=== PATIENT | female | born 1990 | race Hispanic/Latino ===

== ENCOUNTER 2023-12-19 12:16 | Emergency (ER) | payer BC, SELFPAY ==
[2023-12-19 12:37] VITALS: BP 93/65; PULSE 75; RESP 20; TEMP 36.9; O2SAT 99
--- NOTE | 2023-12-19 13:03 | ED.ABDPAIN ---
HPI - Abdominal Pain General Chief Complaint: Abdominal Pain Stated Complaint: Vomiting/Abdominal Pain Time Seen by Provider: 12/19/23 12:40 Source: patient Mode of arrival: ambulatory Limitations: no limitations History of Present Illness HPI narrative: Barbara is a 33-year-old female patient presenting to the clinic today with complaints of right upper quadrant abdominal pain, mid abdominal pain, nausea, and diarrhea for the past 15 days. Last menstrual period she thinks was on December 08. Last bowel movement was this morning and normal for the patient. She denies any fever, chills, or body aches. Review of Systems Review of Systems: Pertinent positives per HPI. Patient denies any fever, chills, rash, headache, visual changes, dizziness, cough, runny nose, sore throat, shortness of breath, chest pain, palpitations, nausea, vomiting, diarrhea, constipation, abdominal pain, or any urinary issues. PMFSH Comments At the time of my signature, I reviewed and agree with the nursing past medical, surgical, social, and family history. There is no relevant family history pertinent to the patient complaint. Exam Narrative: General: Well-developed, well nourished, in no apparent distress. Head: Normocephalic, atraumatic. Cardio: Regular rate and rhythm, s1 and s2 normal, no murmur appreciated. Resp: Clear to auscultation bilaterally, no rhonchi, rales, wheezing or rubs. Abdomen: Soft, pliable, bowel sounds present in all quadrants, right upper quadrant and mid abdominal tender to palpation, no organomegly, no CVAT tenderness. : Deferred Course Course Emergency Course: Portions of this record may have been created with voice recognition software. Level of Care: Express Care Visit Vital Signs Vital signs: Vital Signs Temperature 36.9 C 12/19/23 12:37 Pulse Rate 75 12/19/23 12:37 Respiratory Rate 20 12/19/23 12:37 Blood Pressure 93/65 L 12/19/23 12:37 Pulse Oximetry 99 12/19/23 12:37 Oxygen Delivery Room Air 12/19/23 12:37 Temperature 36.9 C 12/19/23 12:37 Pulse Rate 75 12/19/23 12:37 Respiratory Rate 20 12/19/23 12:37 Blood Pressure 93/65 L 12/19/23 12:37 Pulse Oximetry 99 12/19/23 12:37 Oxygen Delivery Room Air 12/19/23 12:37 Vital signs reviewed MDM - Abdominal Pain MDM Narrative Medical decision making narrative: At the time of visit patient is resting comfortably on the exam table. Patient appears to be nontoxic. Labs: UA positive for trace leukocytes and 1+ blood. UA preg test positive Plan: test was positive. Recommend transfer to the ER for further evaluation for abdominal pain and . Patient voiced understanding. Patient would like to be transfer to [facility]. Contacted Dr. Ohara at [facility] and report was given for continuity of care. Differential Diagnosis Differential diagnosis: Likely abdominal pain, acute appendicitis, calculus of kidney, constipation, diverticulitis, endometriosis, gastroenteritis, pancreatitis, small bowel obstruction and other ( Ectopic , GERD, peptic ulcer) Discharge Plan Discharge Clinical Impression: Abdominal pain, Patient Disposition: Acute Care Hospital Condition: Stable Follow-up/Referrals: PHYSICIAN,GYROSCOPE REPAIRER [Primary Care Provider] - Time of Disposition: 13:30 Quality NIHSS Nursing Documentation ED NIHSS nursing documentation: reviewed/agree
[2023-12-19 13:07] LABS: EDUABILI Negative; EDUABLOOD 1+; EDUAGLUCOSE Negative; EDUAKETONE Negative; EDUALEUKO Trace; EDUANITRATE Negative; EDUAPH 6.5; EDUAPROTEIN Negative; EDUASPGRAVITY 1.015; EDUAUROBILI 0.2
[2023-12-21 12:22] LABS: EDUAAPPEAR Clear; EDUACOLOR1 Yellow
== END 2023-12-19 13:37 | disposition short-term general hospital (02) ==
PROVIDERS: Emergency Provider Nurse Practitioner Family
DX: O99.891 Other specified diseases and conditions complicating pregnancy (principal); Z3A.00 Weeks of gestation of pregnancy not specified; R10.11 Right upper quadrant pain; R10.9 Unspecified abdominal pain
CPT/HCPCS: 81003; 81025; 99202; G0463

== ENCOUNTER 2023-12-19 16:51 | Emergency (ER) | payer BC, SELFPAY ==
--- NOTE | ~2023-12-19 | US_ITS ---
EXAMINATION: US OB transvaginal INDICATION: + test, lower abd pain TECHNIQUE: Sonography of the pelvis was performed by transabdominal and transvaginal techniques. COMPARISON: None. RESULT: Uterus: 10.9 x 5.8 x 7.4 cm. Anteverted. Possible arcuate morphology. Homogenous myometrium. Intrauterine gestational sac: Not seen. Mean Sac Diameter: 2.5 cm, corresponding gestational age 7 week 4 days. Yolk sac: 0.5 cm . Embryo: Single present. [place] rump length: 1.1 cm, corresponding gestational age 7 weeks, 1 days. G estational heart rate: present 141 bpm. Subgestational hematoma: Present measuring 3.1 x 1.0 x 1.6 cm . Right ovary: 3.7 x 2.0 x 2.1 cm. Vascular flow is present. No adnexal mass. Left ovary: 3.1 x 1.9 x 1.9 cm. Vascular flow is present. No adnexal mass. Pelvis free fluid: None. IMPRESSION: Single, live intrauterine gestation. Estimated Gestational Age: 7 weeks, 1 days by crown rump length. ERIKA by ultrasound 08/05/2024. Moderate volume subchorionic hemorrhage. Reviewed, dictated and finalized at location K. IMPRESSION: Single, live intrauterine gestation. Estimated Gestational Age: 7 weeks, 1 days by crown rump length. ERIKA by ultras ound 08/05/2024. Moderate volume subchorionic hemorrhage.
[2023-12-19 16:55] VITALS: BP 117/67; PULSE 90; RESP 20; TEMP 36.7; O2SAT 100
--- NOTE | 2023-12-19 16:57 | ED.ABDPAIN ---
HPI - Abdominal Pain General Chief Complaint: Abdominal Pain <PEGGY Farley Last Filed: 12/20/23 12:12> Stated Complaint: abd pain <PEGGY Farley Last Filed: 12/20/23 12:12> Time Seen by Provider: 12/19/23 16:57 <PEGGY Farley Last Filed: 12/20/23 12:12> Focused HPI: This is a 33-year-old female that presents to emergency department for mid abdominal pain. Ongoing over the last week. Reports some nausea and diarrhea. Reports she had a positive test at the Urgent Care, was sent to the ER for further evaluation. Reports she had a menstrual cycle about 10 days ago, but it was not normal. Denies fever, vomiting, dysuria, hematuria. GENERAL: Well-appearing, well-nourished, and in no acute distress. HEAD: Normocephalic, atraumatic. CHEST: Clear to auscultation. ?No respiratory distress. HEART: Regular rate and rhythm.? NEURO: ?Alert and oriented x3. Patient screened in triage and initial orders placed.? ?Additional care and disposition to be based upon?diagnostic testing and treatment. <PEGGY Farley Last Filed: 12/20/23 12:12> Source: patient <PEGGY Gaytan Last Filed: 12/19/23 23:25> Mode of arrival: ambulatory <PEGGY Gaytan Last Filed: 12/19/23 23:25> Limitations: no limitations <PEGGY Gaytan Last Filed: 12/19/23 23:25> History of Present Illness HPI narrative: Agree with above HPI. Patient is primarily Montenegrin-speaking. 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 Reports persistent nausea for past 15 days. Denies vomiting. Has been able to eat and drink. <PEGGY Gaytan Last Filed: 12/19/23 23:25> Related Data Allergies/Adverse Reactions: Allergies Allergy/AdvReac Type Severity Reaction Status Date / Time No Known Allergies Allergy Verified 12/19/23 16:54 <Akila Reyes PA-C - Last Filed: 12/20/23 12:12> Review of Systems Review of Systems: CONSTITUTIONAL: Denies fever, chills, or sweats GASTROINTESTINAL: see HPI. GENITOURINARY: Denies dysuria or hematuria. <Carmenza Cole PA-C - Last Filed: 12/19/23 23:25> All systems reviewed & are unremarkable except as noted in HPI and below <Carmenza Cole PA-C - Last Filed: 12/19/23 23:25> PMFSH Past Medical History Medical History: Medical History (Updated 12/20/23 @ 12:11 by Akila Reyes PA-C) No active medical problems <Akila Reyes PA-C - Last Filed: 12/20/23 12:12> Social History Social History: Social History (Updated 12/20/23 @ 12:11 by Akila Reyes PA-C) Substance use: never <Akila Reyes PA-C - Last Filed: 12/20/23 12:12> Exam Narrative: GENERAL: Well appearing, well-nourished, non-toxic, in no acute distress. HEAD: Normocephalic, atraumatic. RESPIRATORY: Airway patent, respirations nonlabored. Clear to auscultation bilaterally, no rales, rhonchi, wheezing. CARDIOVASCULAR: Regular rate and rhythm ABDOMINAL: Soft, mild tenderness in epigastric region, nondistended. Normoactive BS. MUSCULOSKELETAL: Moves all extremities. No gross deformities. SKIN: Warm, dry, normal color. NEURO: A&O X3. Speech clear. PSYCHIATRIC: Appropriate mood and affect. Normal interaction. <Carmenza Coel PA-C - Last Filed: 12/19/23 23:25> Course Vital Signs Vital signs: Vital Signs Temperature 98.1 F 12/19/23 16:55 Pulse Rate 90 12/19/23 16:55 Respiratory Rate 20 12/19/23 16:55 Blood Pressure 117/67 12/19/23 16:55 Pulse Oximetry 100 12/19/23 16:55 Oxygen Delivery Room Air 12/19/23 16:55 Temperature 98.1 F 12/19/23 16:55 Pulse Rate 67 12/19/23 20:05 Respiratory Rate 17 12/19/23 20:05 Blood Pressure 103/54 L 12/19/23 20:05 Pulse Oximetry 97 12/19/23 20:05 Oxygen Delivery Room Air 12/19/23 16:55 <Akila Reyes PA-C - Last Filed: 12/20/23 12:12> Vital Signs
[2023-12-19 20:03] LABS: Basophils Absolute Auto 0.1 K/mm3 (0.0-0.1); Basophils Percent Auto 0.6 % (0.2-1.2); Eosinophils Absolute Auto 0.1 K/mm3 (0-0.3); Eosinophils Percent Auto 1.4 % (0-4.4); Hematocrit 36.2 % (37.0-47.0); Hemoglobin 11.9 g/dL (12.0-15.0); Immature Granulocyte Absolute 0.03 K/mm3 (0.00-0.031); Immature Granulocyte Percent A 0.3 % (0-0.5); Lymphocytes Absolute Auto 2.16 K/mm3 (0.9-3.2); Lymphocytes Percent Auto 24.9 % (18.3-44.2); Mean Corpuscular HGB Conc 32.9 g/dl (32-36); Mean Corpuscular Hemoglobin 28.8 pg (26-34); Mean Corpuscular Volume 87.7 fl (80-100); Monocytes Absolute Auto 0.7 K/mm3 (0.1-0.6); Monocytes Percent Auto 8.1 % (2.6-8.5); Neutrophils Absolute Auto 5.6 K/mm3 (1.3-6.7); Neutrophils Percent Auto 64.7 % (45.5-73.1); Platelet Count Result 215 k/mm3 (150-375); Red Blood Count 4.13 M/mm3 (4.2-5.4); Red Cell Distribution Width 12.6 % (11.5-14.5); White Blood Count 8.7 K/mm3 (4.5-10.0)
[2023-12-19 20:05] VITALS: BP 103/54; PULSE 67; RESP 17; O2SAT 97
[2023-12-19 20:08] LABS: Appearance Urine Clear (Clear); Bacteria Urine None Seen /hpf; Bilirubin Urine Negative (Negative); Blood Urine 1+ (Negative); Color Urine Yellow (Yellow); Glucose Urine UA Negative (Negative); Ketones Urine Negative (Negative); Leukocyte Esterase Ur Negative LEU/UL (Negative); Nitrate Urine Negative (Negative); Non Pathogenic Casts 0-2; Protein Urine Negative (Negative); RBC Urine 0-2 /hpf (0-2); Specific Grav Ur 1.023 (1.001-1.035); Squamous Epithelial Cell Urine None Seen /hpf (Few); Urobilinogen Urine 0.2 mg/dL (<2.0); WBC Urine 0-5 /hpf (0-3)
[2023-12-19 20:10] LABS: Add Urine Microscopic? YES
[2023-12-19 20:29] LABS: Alanine Aminotransferase 14 U/L (6-35); Albumin Level 4.7 g/dL (3.5-5.1); Alkaline Phosphatase 88 U/L (38-126); Anion Gap 12 mmol/L (4-12); Aspartate Amino Transferase 21 U/L (14-36); Bilirubin,Total 0.3 mg/dL (0.2-1.3); Blood Urea Nitrogen 8 mg/dL (7-17); Calcium 9.1 mg/dL (8.4-10.2); Carbon Dioxide 24 mmol/L (22-30); Chloride 101 mmol/L (98-107); Estimated CRCL calculation 113 ml/min; Estimated Glomerular Filt Rate > 60; Glucose 73 mg/dL (65-110); Lipase 177 U/L (23-300); Potassium 3.8 mmol/L (3.4-5.0); Sodium 137 mmol/L (137-145)
[2023-12-19] MEDS: SODIUM CHLORIDE 0.9% IV 1,000 ML 999 ML IV CONT (20:32)
[2023-12-19] MEDS: ONDANSETRON INJ 4 MG/2 ML VIAL IV PUSH (20:32)
== END 2023-12-19 23:45 | disposition home or self-care (01) ==
PROVIDERS: Physician Assistant; Emergency Provider Physician Assistant
DX: O46.8X1 Other antepartum hemorrhage, first trimester (principal); O26.891 Other specified pregnancy related conditions, first trimester; R11.0 Nausea; Z3A.01 Less than 8 weeks gestation of pregnancy
CPT/HCPCS: 36415; 76817; 80053; 81001; 81003; 81025; 83690; 84702; 85025; 96361; 96374; 99284; J2405; J7030

== ENCOUNTER 2024-01-09 14:13 | Emergency (ER) | payer BC, SELFPAY ==
--- NOTE | ~2024-01-09 | US_ITS ---
EXAMINATION: US OB <=14 wk fetus w TV DATE: 01/09/2024 16:06 INDICATION: Pelvic pain. Bleeding. TECHNIQUE: Real-time transabdominal and transvaginal pelvic ultrasound was performed. COMPARISON: ultrasound 12/19/23 FINDINGS: TRANSABDOMINAL ULTRASOUND: The uterus measures 10.6 x 4.5 x 6.1 cm. TRANSVAGINAL ULTRASOUND: There is an intrauterine gestational sac. A yolk sac is identified. The fet al crown rump length measures 1.3 cm, which correlates with an estimated gestational age of 7 weeks a nd 4 day(s). heart motion is not identified by M-mode Doppler. The right ovary measures 2.6 x 1 .3 x 2.1 cm. The left ovary measures 2.0 x 2.0 x 2.8 cm. There is no free fluid in the pelvis. IMPRESSION: 1. demise. Reviewed, dictated and finalized at location A. IMPRESSION: 1. demise.
[2024-01-09 14:45] VITALS: BP 136/69; PULSE 100; RESP 16; TEMP 36.6; O2SAT 100
--- NOTE | 2024-01-09 14:47 | ED.PREGNANCY ---
HPI - General Chief complaint: Vaginal Bleeding <PEGGY Gaytan Last Filed: 01/09/24 15:00> Stated complaint: vaginal bleeding <PEGGY Gaytan Last Filed: 01/09/24 15:00> Time Seen by Provider: 01/09/24 14:47 <PEGGY Gatyan Last Filed: 01/09/24 15:00> Focused HPI: Patient is a 33 y/o female who presents to the ED with c/o vaginal bleeding. Patient is and currently 9 weeks gestation via LNMP in November. Has had confirmed IUP via US here at 7 weeks. Did show moderate sized subchorionic hematoma at that time. Patient reports she began having cramping and lower abdominal pain yesterday. Developed vaginal bleeding this morning. Has had some clots in the blood today. OBGYN is in [place] and scheduled to have first appt 01/15. Denies fevers. GENERAL: Well-appearing, well-nourished, and in no acute distress. HEAD: Normocephalic, atraumatic. CHEST: Clear to auscultation. ?No respiratory distress. HEART: Regular rate and rhythm.? ABD: Mild tenderness throughout lower abdomen. No rebound. NEURO: ?Alert and oriented x3. Patient screened in triage and initial orders placed.? ?Additional care and disposition to be based upon?diagnostic testing and treatment. <PEGGY Gaytan Last Filed: 01/09/24 15:00> Source: patient <PEGGY Gaytan Last Filed: 01/09/24 15:00> Mode of arrival: ambulatory <PEGGY Gaytan Last Filed: 01/09/24 15:00> Limitations: no limitations <PEGGY Gaytan Filed: 01/09/24 15:00> Related Data Allergies/Adverse reactions: Allergies Allergy/AdvReac Type Severity Reaction Status Date / Time No Known Allergies Allergy Verified 01/09/24 15:00 <PEGGY Gaytan Last Filed: 01/09/24 15:00> Review of Systems Review of Systems: All systems reviewed & are unremarkable except as noted in HPI and below <Yovani Jalloh MD - Last Filed: 01/09/24 22:28> PMFSH Past Medical History Medical History: Medical History No active medical problems <Carmenza Cole PA-C - Last Filed: 01/09/24 15:00> Surgical History Surgical History: Surgical History No significant past surgical history <Carmenza Cole PA-C - Last Filed: 01/09/24 15:00> Social History Social History: Social History Smoking status: Never smoker Alcohol intake: never Substance use: never <Carmenza Cole PA-C - Last Filed: 01/09/24 15:00> Exam Narrative: GENERAL: Well-developed, well-nourished, and in no acute distress. HEAD: Normocephalic, atraumatic. EYES: PERRLA and EOMI. CHEST: Clear to auscultation. No respiratory distress. No wheezes rales or rhonchi HEART: Regular rate and rhythm. No murmur heard. Normal peripheral pulses. ABDOMEN: Soft, minimal bilateral lower quadrant tenderness without rebound or guarding, nondistended, normal active bowel sounds. no CVA tenderness EXTREMITIES: Normal range of motion. No edema. SKIN: Warm, dry, no rash. NEURO: Alert and oriented x3. No focal deficit. Moving all 4 limbs spontaneously PSYCH: Normal mood and affect. <Yovani Jalloh MD - Last Filed: 01/09/24 22:28> Course Course Emergency Course: 18:25 - I agree with the HPI as documented in the patient's medical screening exam. The patient states she has gone through 3 pads total today. She denies chest pain, shortness of breath, lightheadedness or loss of consciousness. 18:49 - Ultrasound demonstrates a single intrauterine without heart activity and estimated gestational age of 7 weeks and 4 days, concerning for demise. CBC unremarkable. Chemistries unremarkable. Beta h[place] 24504 to 2915 today. UA demonstrates trace leukocyt
[2024-01-09 15:08] LABS: Basophils Percent Auto 0.4 % (0.2-1.2); Eosinophils Absolute Auto 0.1 K/mm3 (0-0.3); Eosinophils Percent Auto 0.5 % (0-4.4); Hemoglobin 12.5 g/dL (12.0-15.0); Immature Granulocyte Absolute 0.02 K/mm3 (0.00-0.031); Immature Granulocyte Percent A 0.2 % (0-0.5); Lymphocytes Absolute Auto 1.58 K/mm3 (0.9-3.2); Lymphocytes Percent Auto 16.5 % (18.3-44.2); Mean Corpuscular HGB Conc 33.8 g/dl (32-36); Mean Corpuscular Hemoglobin 29.6 pg (26-34); Mean Corpuscular Volume 87.5 fl (80-100); Monocytes Absolute Auto 0.6 K/mm3 (0.1-0.6); Monocytes Percent Auto 6.2 % (2.6-8.5); Neutrophils Absolute Auto 7.3 K/mm3 (1.3-6.7); Neutrophils Percent Auto 76.2 % (45.5-73.1); Platelet Count Result 204 k/mm3 (150-375); Red Blood Count 4.23 M/mm3 (4.2-5.4); Red Cell Distribution Width 12.8 % (11.5-14.5); White Blood Count 9.6 K/mm3 (4.5-10.0)
[2024-01-09 15:13] LABS: BEDSIDEPREGUCG Positive
[2024-01-09 15:18] LABS: Anion Gap 11 mmol/L (4-12); Blood Urea Nitrogen 9 mg/dL (7-17); Calcium 9.7 mg/dL (8.4-10.2); Carbon Dioxide 25 mmol/L (22-30); Chloride 101 mmol/L (98-107); Estimated Glomerular Filt Rate > 60; Glucose 95 mg/dL (65-110); Sodium 137 mmol/L (137-145)
[2024-01-09 15:19] LABS: Add Urine Microscopic? YES; Appearance Urine Clear (Clear); Bacteria Urine None Seen /hpf; Bilirubin Urine Negative (Negative); Blood Urine 3+ (Negative); Color Urine Yellow (Yellow); Glucose Urine UA Negative (Negative); Ketones Urine Negative (Negative); Leukocyte Esterase Ur Trace LEU/UL (Negative); Nitrate Urine Negative (Negative); Non Pathogenic Casts 0-2; Protein Urine Negative (Negative); RBC Urine >100 /hpf (0-2); Specific Grav Ur 1.018 (1.001-1.035); Squamous Epithelial Cell Urine Occasional /hpf (Few); Urobilinogen Urine 0.2 mg/dL (<2.0); WBC Urine 0-5 /hpf (0-3)
[2024-01-09 15:27] LABS: Prothrombin Time 13.1 Seconds (11.1-14.7)
[2024-01-09 15:28] LABS: Partial Thromboplastin Time 27.1 Seconds (22.3-36.8)
[2024-01-09 18:43] VITALS: BP 129/76; PULSE 72; RESP 20; O2SAT 100
== END 2024-01-09 19:09 | disposition home or self-care (01) ==
PROVIDERS: Physician Assistant; Emergency Provider Preventive Medicine Aerospace Medicine
DX: O03.4 Incomplete spontaneous abortion without complication (principal); O46.91 Antepartum hemorrhage, unspecified, first trimester; Z3A.09 9 weeks gestation of pregnancy
CPT/HCPCS: 36415; 76801; 76817; 80048; 81001; 81025; 84702; 85025; 85461; 85610; 85730; 86850; 86900; 86901; 99284